=== PATIENT | male | born 1995 | race Caucasian/White ===

== ENCOUNTER 2016-09-11 02:03 | Inpatient (IN) | payer SELFPAY ==
[~2016-09-11] VITALS: Ht 175.3 cm; Wt 65.0 kg
[2016-09-11] MEDS ORDERED: ALPR0.25 PO (02:25)
[2016-09-11] MEDS ORDERED: ONDANSETRON 2MG/ML, 2ML ONE (02:29)
[2016-09-11] MEDS ORDERED: MIDAZOLAM 1 MG/ML, 2ML IVPush ONE ×2 (03:00)
[2016-09-11] MEDS ORDERED: ONDANSETRON 2MG/ML, 2ML IVPush ONE (03:00)
[2016-09-11] MEDS ORDERED: SODIUM CHLORIDE 0.9% 1,000ML IVBOLUS ONE ×2 (03:00→05:00)
[2016-09-11] MEDS ORDERED: ETOMIDATE 20 MG/10 ML IVPush ONE (03:00)
[2016-09-11] MEDS ORDERED: SODIUM CHLORIDE FLUSH 10ML SYR IVF ONE (03:00)
[2016-09-11] MEDS ORDERED: SUCCINYLCHOLINE 20 MG/ML, 10ML IVPush ONE (03:00)
[2016-09-11 03:03] LABS: ASPARTATE AMINO TRANSFERASE 35 U/L (15-37); BLOOD UREA NITROGEN 13 mg/dL (7-18)
[2016-09-11 03:04] LABS: DAU SCREEN DISCLAIMER
[2016-09-11] MEDS: PROPOFOL 100 ML IV PRN ×7 (03:05→07:00)
[2016-09-11 03:06] LABS: ACETAMINOPHEN < 2 mcg/mL (10-30)
[2016-09-11] MEDS ORDERED: PROPOFOL 100 ML IV PRN (04:31)
[2016-09-11] MEDS ORDERED: HEPARIN 5,000 UNITS/ML, 1ML ONE (04:46)
[2016-09-11] MEDS ORDERED: FENTANYL PF 100 MCG/2ML ONE (04:46)
[2016-09-11] MEDS: HEPARIN 5,000 UNITS/ML, 1ML SQ SCH ×2 (04:47→13:00)
[2016-09-11] MEDS ORDERED: ALBUTEROL/IPRATROPIUM 2.5MG/0.5MG, 3 ML INLINE SCH (05:00)
[2016-09-11] MEDS ORDERED: FENTANYL PF 100 MCG/2ML IVP ONE (05:00)
[2016-09-11] MEDS ORDERED: LIDOCAINE-MPF 1%, 2ML ENDO PRN (05:00)
[2016-09-11] MEDS: SODIUM CHLORIDE 0.9% 1,000 ML IV SCH ×2 (05:54→13:00)
[2016-09-11] MEDS ORDERED: POLYETHYLENE GLYCOL 17 GM PACKET PO PRN (06:00)
[2016-09-11] MEDS ORDERED: LABETALOL 5MG/ML, 20ML IVPush PRN (06:00)
[2016-09-11] MEDS ORDERED: DOCUSATE 100 MG CAPSULE PO PRN (06:00)
[2016-09-11] MEDS ORDERED: ONDANSETRON 2MG/ML, 2ML IVPush PRN (06:00)
[2016-09-11] MEDS ORDERED: BISACODYL 10 MG SUPP PR PRN (06:00)
[2016-09-11] MEDS ORDERED: ACETAMINOPHEN 325 MG TABLET PO PRN (06:00)
[2016-09-11 06:44] VITALS: BP 91/53
[2016-09-11] MEDS ORDERED: MIDAZOLAM 1 MG/ML, 5ML ONE (07:00)
[2016-09-11] MEDS ORDERED: ETOMIDATE 40 MG/20 ML ONE (07:00)
[2016-09-11] MEDS ORDERED: PROPOFOL 10 MG/ML, 20ML ONE (07:00)
[2016-09-11] MEDS ORDERED: PROPOFOL 10 MG/ML, 100ML IV ONE (07:00)
[2016-09-11] MEDS ORDERED: NOREPINEPHRINE 4 MG in SODIUM CHLORIDE 0.9% 246 ML IV PRN (07:00)
[2016-09-11] MEDS ORDERED: SUCCINYLCHOLINE 20 MG/ML, 10ML ONE (07:00)
[2016-09-11] MEDS ORDERED: THIAMINE 100MG TABLET PO SCH (09:00)
[2016-09-11] MEDS ORDERED: FOLIC ACID 1 MG TABLET PO SCH (09:00)
== END 2016-09-11 14:25 | disposition home or self-care (01) | DRG 208 ==
LOC: ED 02:42 → EDIP 03:41 → CSU 07:16
PROVIDERS: ADMIT Internal Medicine; ATTEND Internal Medicine
PROC: 0BH17EZ Insertion of Endotracheal Airway into Trachea, Via Natural or Artificial Opening (ICD-10-PCS; principal; 2016-09-11)
PROC: 5A1935Z Respiratory Ventilation, Less than 24 Consecutive Hours (ICD-10-PCS; 2016-09-11)
PROC: 0T9B70Z Drainage of Bladder with Drainage Device, Via Natural or Artificial Opening (ICD-10-PCS; 2016-09-11)
DX: J96.00 Acute respiratory failure, unspecified whether with hypoxia or hypercapnia (principal); G93.41 Metabolic encephalopathy; Z99.11 Dependence on respirator [ventilator] status; F10.229 Alcohol dependence with intoxication, unspecified; F41.9 Anxiety disorder, unspecified; F12.129 Cannabis abuse with intoxication, unspecified; Y90.8 Blood alcohol level of 240 mg/100 ml or more; Z93.1 Gastrostomy status
CPT/HCPCS: 36415; 71010; 74000; 80053; 80307; 80329; 81003; 82962; 84478; 85025; 87070; 87081; 87205; 93005; 94002; 94003; 94150; 94640; 96374; 96375; J1644; J2250; J2405; J2704; J3010; G0480; J0330; J7030